=== PATIENT | female | born 1960 ===

== ENCOUNTER 2016-12-27 16:14 | Emergency (ER) | payer BC ==
[2016-12-27 16:28] VITALS: BP 147/96; RESP 20; TEMP 97.8; O2SAT 98
[2016-12-27] MEDS ORDERED: Sodium Chloride 0.9% 1,000 ML IV STA (17:22)
[2016-12-27 18:29] LABS: BASO # 0.1 K/uL (0.0-0.2); BASO % 0.8 % (0.0-2.0); EOS # 0.3 K/uL (0.0-0.7); EOS % 4.8 % (0.0-4.0); HEMATOCRIT 37.6 % (34.0-47.0); LYMPH # 2.4 K/uL (1.0-4.3); LYMPH % 34.4 % (20.0-40.0); MEAN CELL VOLUME 88.3 fl (81.0-99.0); MEAN CORPUSCULAR HEMOGLOBIN 29.1 pg (27.0-31.0); MEAN PLATELET VOLUME 8.3 fl (7.2-11.7); MONO # 0.5 K/uL (0.0-0.8); MONO % 6.5 % (0.0-10.0); NEUT # 3.7 K/uL (1.8-7.0); NEUT % 53.5 % (50.0-75.0); NRBC % 0.1 % (0.0-0.0)
[2016-12-27 18:37] LABS: RBC URINE 2 /hpf (0-3); URINE BACTERIA FEW (<OCC); URINE BILIRUBIN NEGATIVE (NEGATIVE); URINE BLOOD NEGATIVE (NEGATIVE); URINE COLOR YELLOW (YELLOW); URINE GLUCOSE (UA) NEG (Normal); URINE KETONE TRACE mg/dL (NEGATIVE); URINE LEUKOCYTE ESTERASE NEG Leu/uL (Negative); URINE PROTEIN 100 mg/dL (NEGATIVE); URINE UROBILINOGEN 0.2-1.0 mg/dL (0.2-1.0); WBC URINE 7 /hpf (0-5)
[2016-12-27 18:51] LABS: ALB/GLOB RATIO 1.1 (1.0-2.1); ALKALINE PHOSPHATASE 84 U/L (38-126); ALT/SGPT 29 U/L (9-52); AST/SGOT 22 U/L (14-36); BILIRUBIN,TOTAL 0.6 mg/dl (0.2-1.3); BLOOD UREA NITROGEN 6 mg/dl (7-17); CALCIUM 9.8 mg/dL (8.4-10.2); CARBON DIOXIDE 26 mmol/L (22-30); CHLORIDE 99 mmol/L (98-107); GFR AFRICAN-AMERICAN > 60; GLUCOSE,RANDOM 108 mg/dL (65-105); POTASSIUM 4.2 MMOL/L (3.6-5.0); SODIUM 140 mmol/l (132-148); TOTAL PROTEIN 8.1 G/DL (6.3-8.2)
--- NOTE | 2016-12-27 19:30 | ED PDOC ---
HPI: General Adult Time Seen by Provider: 12/27/16 17:21 Chief Complaint (Nursing): Dizziness/Lightheaded Chief Complaint (Provider): dizziness History Per: Patient History/Exam Limitations: no limitations Additional Complaint(s): 56yo F in ED with hx of DM and vertigo c/o dizziness nausea fontal STEIN (throbbing ) chills, Right lower quad abd pain, subjective fever vomiting x5 and diarrhea with mucus-no blood x 5 since this AM. pt denies eating something poor or known sick contacts. no foreign travel. denies chest pain, SOB, Past Medical History Reviewed: Historical Data, Nursing Documentation, Vital Signs Vital Signs: Last Vital Signs Temp 97.8 F 12/27/16 16:26 Pulse 78 12/27/16 16:26 Resp 20 12/27/16 16:26 BP 147/96 H 12/27/16 16:26 Pulse Ox 98 12/27/16 19:35 - Medical History PMH: Diabetes - Surgical History Surgical History: Cholecystectomy, Tonsillectomy - Family History Family History: States: No Known Family Hx - Allergies Allergies/Adverse Reactions: Allergies Allergy/AdvReac Type Severity Reaction Status Date / Time Penicillins Allergy RASH Verified 12/27/16 16:26 Review of Systems ROS Statement: Except As Marked, All Systems Reviewed And Found Negative Constitutional: Positive for: Fever, Chills Gastrointestinal: Positive for: Nausea, Vomiting, Abdominal Pain, Diarrhea Physical Exam - Reviewed Nursing Documentation Reviewed: Yes Vital Signs Reviewed: Yes - Physical Exam Appears: Positive for: Non-toxic, No Acute Distress Head Exam: Positive for: ATRAUMATIC, NORMAL INSPECTION, NORMOCEPHALIC Skin: Positive for: Normal Color, Warm, DRY Eye Exam: Positive for: EOMI, Normal appearance, PERRL ENT: Positive for: Normal ENT Inspection Cardiovascular/Chest: Positive for: Regular Rate, Rhythm Respiratory: Positive for: CNT, Normal Breath Sounds Gastrointestinal/Abdominal: Positive for: Bowel Sounds, Soft, Tenderness (RLQ and LLQ). Negative for: Guarding Back: Positive for: Normal Inspection. Negative for: L CVA Tenderness, R CVA Tenderness Extremity: Positive for: Normal ROM Neurologic/Psych: Positive for: Alert, Oriented - Laboratory Results Result Diagrams: 12/27/16 18:00 12/27/16 18:00 - ECG ECG Rhythm: Positive for: Normal QRS, Normal ST Segment, Sinus Rhythm O2 Sat by Pulse Oximetry: 98 - Progress ED Course And Treament: pt will get work up to r/o appendicitis meds: NS fluids, meclinze and torodol for abd pain and headache Re-evaluation Time: 19:34 Condition: Improved (improving in ED. ) Disposition - Clinical Impression Clinical Impression: Dizziness, Abdominal pain - Patient ED Disposition Is Patient to be Admitted: Transfer of Care - Disposition Disposition Time: 20:00 Condition: FAIR Patient Signed Over To: Herman Lloyd Handoff Comments: pending CT results
[2016-12-27] MEDS ORDERED: Acetaminophen 160 mg/5 ml UD ONE (19:43)
[2016-12-27] MEDS ORDERED: Iohexol 350 MG/100 ML VIAL ONE ×2 (20:17→20:22)
[2016-12-27] MEDS ORDERED: Sodium Chloride 0.9% 50 ML IV ONE (20:23)
--- NOTE | 2016-12-27 20:45 | ED PDOC ---
- Laboratory Results Result Diagrams: 12/27/16 18:00 12/27/16 18:00 - ECG ECG: Positive for: Interpreted By Me ECG Rhythm: Positive for: Sinus Rhythm. Negative for: ST/T Changes Rate: 62 O2 Sat by Pulse Oximetry: 98 - Progress ED Course And Treament: Signed out to me at [address] results. On my initial evaluation, pt. reports dizziness and abd pain have resolved. Reports dizziness is consistent with previous episodes of vertigo. Abd soft and non-tender. Repeat neuro exam is non-focal. No aphasia or facial droop. CT abd/pelvis: 1. A normal appendix is identified. 2. The right colon is collapsed and wall thickening is not well assessed but there is no adjacent pericolonic inflammatory changes. No evidence of bowel obstruction. Cannot exclude a mild rightsided colitis. Disposition - Clinical Impression Clinical Impression: Dizziness, Abdominal pain, Colitis - POA Present On Arrival: None - Disposition Referrals: Kian Ordonez MD [Staff Provider] - Disposition: Routine/Home Disposition Time: 21:26 Condition: IMPROVED Prescriptions: Dicyclomine [Bentyl] 20 mg PO Q8 PRN #30 tab PRN Reason: abdominal pain Ciprofloxacin [Cipro] 500 mg PO BID #14 tab metroNIDAZOLE [Flagyl] 500 mg PO BID #14 tab Meclizine [Meclizine*] 1 - 2 tab PO Q6 PRN #30 tab PRN Reason: vertigo Instructions: Colitis (ED), Vertigo (ED) Forms: [facility] ED School/Work Excuse
[2016-12-27 21:30] VITALS: PULSE 62
--- NOTE | 2016-12-28 09:19 | CT ---
PROCEDURE: CT Abdomen and Pelvis with contrast HISTORY: RLQ pain COMPARISON: None. TECHNIQUE: CT scan of the abdomen and pelvis was performed after administration of intravenous contrast. Oral contrast was not administered. Coronal and sagittal reformatted images were obtained. Contrast dose: 95 mL Omnipaque Radiation dose: Total exam DLP = 792.51 mGy-cm. This CT exam was performed using one or more of the following dose reduction techniques: Automated exposure control, adjustment of the mA and/or kV according to patient size, and/or use of iterative reconstruction technique. FINDINGS: LOWER THORAX: There is dependent atelectasis in the lungs. LIVER: The liver is normal in size and there is diffuse low-attenuation. No gross lesion or ductal dilatation. GALLBLADDER AND BILE DUCTS: The gallbladder is surgically absent. PANCREAS: The pancreas is normal in size and there is homogeneous enhancement without focal mass or ductal dilatation. SPLEEN: The spleen is normal in size and there is homogeneous enhancement. ADRENALS: Both adrenal glands are normal in size without discrete nodule. KIDNEYS AND URETERS: Both kidneys are normal in size and there is homogeneous enhancement without hydronephrosis or focal mass. VASCULATURE: Normal in appearance. No aortic aneurysm. BOWEL: The small bowel loops are normal in caliber. There is extensive colonic diverticulosis. There is diffuse apparent mild mural thickening in the colon. APPENDIX: Normal appendix. PERITONEUM: No free fluid. No free air. LYMPH NODES: There are prominent mesenteric lymph nodes in the right lower quadrant, likely reactive. No enlarged lymph nodes. BLADDER: Over distended and normal in appearance. REPRODUCTIVE: The uterus is normal in size. BONES: No acute fracture. There is a hemangioma in the T10 vertebral bodies. OTHER FINDINGS: None. IMPRESSION: Apparent mild mural thickening in the colon is nonspecific and could be related to underdistention however mild acute nonspecific infectious/ inflammatory cannot be excluded. Clinical follow-up is advised. Extensive colonic diverticulosis without CT evidence for acute diverticulitis. No CT evidence for acute appendicitis. Hepatic steatosis. A preliminary report was provided by [facility].
--- NOTE | 2016-12-30 18:56 | CARD ---
APPROVED REPORT EKG Measurement Heart [id number] <Conclusion> Normal sinus rhythm Low voltage QRS Borderline ECG
== END 2016-12-27 21:30 | disposition home or self-care (01) ==
LOC: H.ER 16:14
DX: R10.9 Unspecified abdominal pain (principal); R42 Dizziness and giddiness; K52.9 Noninfective gastroenteritis and colitis, unspecified; Z88.0 Allergy status to penicillin; E11.9 Type 2 diabetes mellitus without complications
CPT/HCPCS: 74177; 80053; 81003; 85025; 93005; 96361; 96374; 99285; J1885; J7040; Q9967

== ENCOUNTER 2017-10-24 17:05 | Emergency (ER) | payer BC, OTHER ==
[2017-10-24 17:33] VITALS: BP 135/93; PULSE 106; RESP 19; TEMP 101.8; O2SAT 99
[2017-10-24 18:39] LABS: VENOUS BLOOD GAS BASE EXCESS 4.2 mmol/L (0.0-2.0); VENOUS BLOOD GAS PCO2 44 mmHg (40-60); VENOUS BLOOD GAS PO2 28 mm/Hg (30-55); VENOUS BLOOD PH 7.43 (7.32-7.43)
--- NOTE | 2017-10-24 18:48 | RAD ---
HISTORY: cough, fever COMPARISON: 09/26/2016 TECHNIQUE: Chest PA and lateral FINDINGS: LUNGS: No active pulmonary disease. PLEURA: No significant pleural effusion identified. No pneumothorax apparent. CARDIOVASCULAR: No radiographic findings to suggest acute or significant cardiovascular disease. OSSEOUS STRUCTURES: No significant abnormalities. VISUALIZED UPPER ABDOMEN: Normal. OTHER FINDINGS: None. IMPRESSION: No active disease. No significant interval change compared to the prior examination(s).
[2017-10-24 19:06] LABS: SQUAMOUS EPITHIAL 1 /hpf (0-5); URINE BACTERIA RARE (<OCC); URINE BILIRUBIN NEGATIVE (NEGATIVE); URINE BLOOD NEGATIVE (NEGATIVE); URINE CLARITY CLEAR (Clear); URINE COLOR STRAW (YELLOW); URINE GLUCOSE (UA) NEG (Normal); URINE LEUKOCYTE ESTERASE NEG Leu/uL (Negative); URINE NITRATE NEGATIVE (NEGATIVE); URINE PROTEIN NEGATIVE (NEGATIVE); URINE UROBILINOGEN 0.2-1.0 mg/dL (0.2-1.0)
[2017-10-24 19:13] LABS: BASO # 0.1 K/uL (0.0-0.2); BASO % 0.8 % (0.0-2.0); EOS # 0.5 K/uL (0.0-0.7); EOS % 6.4 % (0.0-4.0); HEMOGLOBIN 11.4 g/dL (12.0-16.0); LYMPH # 0.7 K/uL (1.0-4.3); LYMPH % 9.9 % (20.0-40.0); MEAN CELL VOLUME 85.4 fl (81.0-99.0); MEAN CORPUSCULAR HEMOGLOBIN 27.8 pg (27.0-31.0); MEAN CORPUSCULAR HGB CONC 32.5 g/dL (33.0-37.0); MEAN PLATELET VOLUME 8.5 fl (7.2-11.7); MONO # 0.7 K/uL (0.0-0.8); MONO % 8.8 % (0.0-10.0); NEUT # 5.6 K/uL (1.8-7.0); NEUT % 74.1 % (50.0-75.0); PLATELET COUNT 261 K/uL (130-400); RBC 4.09 Mil/uL (3.80-5.20); RED CELL DISTRIBUTION WIDTH 13.9 % (11.5-14.5); WHITE BLOOD COUNT 7.5 K/uL (4.8-10.8)
[2017-10-24 19:28] LABS: ALB/GLOB RATIO 1.1 (1.0-2.1); ALBUMIN 4.2 g/dL (3.5-5.0); ALT/SGPT 31 U/L (9-52); AST/SGOT 25 U/L (14-36); BLOOD UREA NITROGEN 6 mg/dl (7-17); CALCIUM 9.5 mg/dL (8.4-10.2); GFR AFRICAN-AMERICAN > 60; GFR NON-AFRICAN AMERICAN > 60
--- NOTE | 2017-10-24 20:08 | ED PDOC ---
HPI: CCC, URI, Sore Throat Time Seen by Provider: 10/24/17 17:38 Chief Complaint (Nursing): Flu-like Symptoms Chief Complaint (Provider): Cough x 1 week, fever and body pain yesterday History Per: Patient History/Exam Limitations: no limitations Have you had recent travel within the past 21 days to any of the following countries: [place], [place], [place] or [place]?: No Onset/Duration Of Symptoms: Days Current Symptoms Are (Timing): Still Present Associated Symptoms: Fever, Myalgias Additional Complaint(s): Pt states she was seen by Dr. Ordonez and told to come to ER for evaluation. Past Medical History Reviewed: Historical Data, Nursing Documentation, Vital Signs Vital Signs: Last Vital Signs Temp 101.8 F H 10/24/17 17:31 Pulse 106 H 10/24/17 17:31 Resp 19 10/24/17 17:31 BP 135/93 H 10/24/17 17:31 Pulse Ox 99 10/24/17 20:29 - Medical History PMH: Diabetes - Surgical History Surgical History: Cholecystectomy, Tonsillectomy - Family History Family History: States: No Known Family Hx - Home Medications Home Medications: Ambulatory Orders Medication Instructions Recorded Ciprofloxacin [Cipro] 500 mg PO BID #14 tab 12/27/16 Dicyclomine [Bentyl] 20 mg PO Q8 PRN #30 tab 12/27/16 Meclizine [Meclizine*] 1 - 2 tab PO Q6 PRN #30 tab 12/27/16 metroNIDAZOLE [Flagyl] 500 mg PO BID #14 tab 12/27/16 Azithromycin 250 mg PO DAILY #6 tab 10/24/17 Oseltamivir [Tamiflu] 75 mg PO BID #10 cap 10/24/17 Ciprofloxacin [Cipro] 500 mg PO BID #10 tab 10/26/17 - Allergies Allergies/Adverse Reactions: Allergies Allergy/AdvReac Type Severity Reaction Status Date / Time Penicillins Allergy RASH Verified 12/27/16 16:26 Review of Systems ROS Statement: Except As Marked, All Systems Reviewed And Found Negative Constitutional: Positive for: Fever, Malaise (bodyaches) Respiratory: Positive for: Cough Physical Exam - Reviewed Nursing Documentation Reviewed: Yes Vital Signs Reviewed: Yes - Physical Exam Appears: Positive for: Non-toxic, No Acute Distress Head Exam: Positive for: NORMAL INSPECTION Skin: Positive for: Normal Color Eye Exam: Positive for: Normal appearance ENT: Positive for: Normal ENT Inspection. Negative for: Pharyngeal Erythema, Tonsillar Exudate, Tonsillar Swelling Neck: Positive for: Supple Cardiovascular/Chest: Positive for: Regular Rate, Rhythm Respiratory: Positive for: Normal Breath Sounds. Negative for: Wheezing Neurologic/Psych: Positive for: Alert, Oriented. Negative for: Motor/Sensory Deficits - Laboratory Results Result Diagrams: 10/24/17 18:30 10/24/17 18:30 - ECG O2 Sat by Pulse Oximetry: 99 (RA) Pulse Ox Interpretation: Normal Medical Decision Making Medical Decision Making: Impression: Influenza like illness Plan: -- CXR -- VBG -- CBC -- Motrin 600mg PO -- Tamiflu 70 mg PO Scribe Attestation: Documented by Flaca Gonzalez acting as a scribe for SHAN Daniels Provider Attestation: All medical record entries made by the Scribe were at my direction and personally dictated by me. I have reviewed the chart and agree that the record accurately reflects my personal performance of the history, physical exam, medical decision making, and the department course for this patient. I have also personally directed, reviewed, and agree with the discharge instructions and disposition. Disposition - Clinical Impression Clinical Impression: Influenza - Patient ED Disposition Is Patient to be Admitted: No Counseled Patient/Family Regarding: Diagnosis, Need For Followup, Rx Given - Disposition Disposition: Routine/Home Disposition Time: 20:29 Condition: STABLE Prescriptions: Azithromycin 250 mg PO DAILY #6 tab Ciprofloxacin [Cipro] 500 mg PO BID #10 tab Oseltamivir [Tamiflu] 75 mg PO BID #10 cap Instructions: Flu, Adult (DC) Forms: [employer] (E[place]ian)
[2017-10-24 20:21] LABS: ANISOCYTOSIS SLIGHT; BANDS 4 % (0-2); BASOPHIL 1 % (0-2); EOSINOPHIL 7 % (0-7); LYMPHOCYTE 10 % (20-50); MONOCYTE 8 % (0-10); NEUTROPHIL 70 % (42-75); PLATELET ESTIMATE NORMAL (NORMAL); TOTAL CELLS COUNTED 100
[2017-10-24 20:22] LABS: HYPOCHROMIC SLIGHT; MICROCYTOSIS SLIGHT
--- NOTE | 2017-10-25 10:34 | CARD ---
APPROVED REPORT EKG Measurement Heart [id number] ME [id number] [id number] <Conclusion> Normal sinus rhythm Normal ECG
== END 2017-10-24 21:06 | disposition home or self-care (01) ==
LOC: H.ER 17:05
DX: J11.1 Influenza due to unidentified influenza virus with other respiratory manifestations (principal); E11.9 Type 2 diabetes mellitus without complications